=== PATIENT | male | born 1970 | race Caucasian/White ===

== ENCOUNTER → 2017-05-30 | Day surgery (SDC) | payer OTHER, MEDICARE ==
[~2017-05-30] MED LIST: ALPRAZOLAM PO; ARMOUR THYROID30 MG PO; BENICAR HCT 20-1 TA1 PO; COZAAR PO; DEPO-TESTOT200 MG/ML IM; IBUPROFEN PO; IBUPROFEN800 MG PO; LEVOTHYROXINE100 MCG PO; LORTAB 10-5001 EACH PO; LORTAB 10/500 T1 TAB PO; LUNESTA; MULTI VITAMIN1 EACH PO; MULTI-VITAMIN1 EAC1 PO; OXYCODONE HCL15 MG PO; OXYCODONE HCL30 MG PO; OXYCONTIN PO; OXYCONTIN60 MG PO; OXYCONTIN80 MG PO; PAIN CREAM; ROXICODONE30 M1 PO; SERTRALINE HCL50 MG PO; SYNTHROID PO; TRAZODONE HCL100 MG PO; TRAZODONE PO; XANAX XR2 MG PO; ZOCOR PO; ZOLOFT PO
--- NOTE | ~2017-05-30 | OR ---
Unit #: [id number] #: [id number] Patient: JANICE CARRENO [id number] [address] [address] [id number] O MR#: [id number] NAME: JANICE CARRENO ROOM: Date of Procedure: 05/30/2017 Admission Date: 05/30/2017 Surgeon: Kavon Pacheco M.D. : 1970 Attending Physician: Kavon Pacheco M.D. Primary Care Physician: Naz Ballesteros M.D. OPERATIVE REPORT PREOPERATIVE DIAGNOSIS Chronic regional pain syndrome, lower extremity. POSTOPERATIVE DIAGNOSIS Chronic regional pain syndrome, lower extremity. PROCEDURE PERFORMED Lumbar sympathetic block with fluoroscopic guidance for needle localization. INDICATIONS FOR PROCEDURE The patient is a 47-year-old male with CRPS affecting his left lower extremity. It was recently flared up significantly due to dysfunction of the spinal cord stimulator, which is working very well to control the symptoms. Plan is to revise the stimulator wires. In the meantime, we are going to trial of sympathetic block to help settle the flat symptom complex down. DESCRIPTION OF PROCEDURE The patient was placed in a prone position. Standard monitors were applied. Sterile prep and drape of the thoracolumbar area was performed. The skin to the left of midline at the L1 level was localized with 1% lidocaine. A long 22-gauge Quincke point spinal needle was advanced with biplanar fluoroscopy to the lower edge of the L1 vertebral body. The needle was walked up to the anterolateral border of L1. After confirming proper positioning with loss of resistance and fluoroscopy and radiographic contrast, a dose of 10 mL of 0.25% bupivacaine were deposited. There was negative intermittent aspiration every 2 to 3 mL. Dictated by... Kavon Pacheco M.D. LHP/rickey TD: 05/30/2017 11:48 JOB #: [id number] Unit #: [id number] #: [id number] Patient: JANICE CARRENO OPERATIVE REPORT Page 1 of 1 X Kavon Pacheco MD X PROCEDURE OPERATIVE NOTE
== END | disposition home or self-care (01) ==
LOC: CCSC 06:51
DX: G89.4 Chronic pain syndrome (principal)
CPT/HCPCS: J2250

== ENCOUNTER → 2017-06-17 | Day surgery (SDC) | payer OTHER ==
--- NOTE | ~2017-06-17 | CR246 ---
[facility] A Service of [facility] RADIOLOGY TEXT RESULTS PATIENT: JANICE CARRENO LOCATION: [facility] : [birth year] UNIT #: [id number] AGE: [address]: Kavon Pacheco MD SEX: M ORDER DR: [id number] [facility] [address] [place], [place] [address] [id number] O MR#: [id number] Acc #: [id number] NAME: JANICE CARRENO : 1970 SEX: M STUDY DATE/TIME: 06/17/2017 13:55 UNIT: [facility] ROOM: STUDY DESCRIPTION: CR Thoracic Spine SIngle View Attending Physician: Kavon Pacheco M.D. Ordering Physician: Huseyin Pacheco Primary Care Physician: Naz Ballesteros M.D. MEDICAL IMAGING REPORT This report is preliminary unless electronic signature is present EXAM Thoracic spine single view HISTORY Spinal cord stimulator placement by Dr. Huseyin Pacheco, fluoro time 1 minute [address] Pacheco 1 fluoroscopic image obtained and submitted for review retrospectively. COMMENT Single fluoroscopic image from 446 06/17/[address] Adams is submitted for retrospective review. It includes lower thoracic spine with a stimulator leads projected over the lower thoracic spine. Please see Dr. Pacheco note. IMPRESSION Single fluoroscopic image of the lower thoracic spine obtained in the AP projection shows spinal stimulator leads projected over the expected location of the canal on the one-view. See Dr. Pacheco note. Dictated by... Daisy Mendez M.D. THIS IS AN ELECTRONICALLY VERIFIED REPORT Daisy Mendez M.D. at 06/18/2017 2:11 PM JERARDO/ashley TD: 06/18/2017 08:01 JOB #: [id number] MEDICAL IMAGING REPORT Page 1 of 1 COPY
--- NOTE | ~2017-06-17 | OR ---
Unit #: [id number] #: [id number] Patient: JANICE CARRENO [id number] [address] [place], [place] [address] [id number] O MR#: [id number] NAME: JANICE CARRENO ROOM: Date of Procedure: 06/17/2017 Admission Date: 06/17/2017 Surgeon: Kavon Pacheco M.D. : 1970 Attending Physician: Kavon Pacheco M.D. Primary Care Physician: Naz Ballesteros M.D. OPERATIVE REPORT PREOPERATIVE DIAGNOSES Chronic regional pain syndrome, lower extremity, post fusion/laminectomy syndrome with left lower extremity radiculopathy. POSTOPERATIVE DIAGNOSES Chronic regional pain syndrome, lower extremity, post fusion/laminectomy syndrome with left lower extremity radiculopathy, status post revision of the spinal cord stimulator IPG pocket, status post removal of percutaneous leads x2, status post placement of percutaneous lead x2. ANESTHESIA MAC. PREOPERATIVE ANTIBIOTICS Ancef 1 g. ESTIMATED BLOOD LOSS 10 mL. DESCRIPTION OF PROCEDURE The patient was placed himself in a prone position, comfortable on the operating room table. He was given sedation and monitored anesthetic care. The patient was sterilely prepped and draped after locating the site of the stimulator anchors and connectors. The skin overlying this was localized with 0.5% Marcaine and epinephrine. Sharp dissection was then used to dissect down to the connectors. These were freed up and the leads were checked with the [employer] rep for integrity. There were 2 quad electrodes, one of which have all leads functioning normal, one of which had a distal leads not functioning normally as we had seen in the office during testing. The [employer] accessory kit using the catheter was flipped over the leads after they had been freed up at their anchor sites and advanced just into the epidural space. The stylet was then passed into each of the leads and we advanced leads to different position hoping to find an area, where the preexisting electrodes would give the stimulation that was required to keep this patient's pain under control. The leads moved very freely within the epidural space. There was no evidence of adhesion. We spent almost 2 hours trying to get a combination of the leads with positions anywhere between T9 and T12 that would give the patient stimulation down below his knee and into his foot, which is where he had in the past, which is what he requires for his symptom control. Even with multiple repositioning, we were unable to get adequate Unit #: [id number] #: [id number] Patient: JANICE CARRENO stimulation into the foot. Some stimulation to the knee which had been present preoperatively and otherwise complaints of pressure and at times, stimulation in the back, buttock, and hips. Due to the fact this patient had failed all other attempts of conservative management of his symptoms, the decision was made to remove the quad electrodes and placed octad electrodes to see if we get better stimulation with this or to possibly use high-frequency stimulation if indeed we were unable to recapture reasonable control of his entire leg. A 14-gauge introducer needle was placed for one of the electrodes after the removal. The other octad electrode was able to be passed through the catheter system that had been used to reposition the initial quad electrodes. Using this and a steering guidewire, we were able to easily manipulate the quad leads within the epidural space. We spent almost a further hour to trying to get a combination of the stimulation, which would give the patient control of the symptoms. Final, we were able to achieve stimulation to the entire leg to the foot using a single electrode. The other electrode was left in place with the distal electrode over the lower third of the T9 vertebral body. It was roughly parallel to the lead that was somewhat left of midline. Plan being to trial high-frequency stimulation with this electrode. If we were unable to replicate the good stimulation, we had been able to get intraoperatively with the other electrodes. We then opened the IPG pocket and removed the battery, which was only 4 years old, detached the electrode connector and removed this through the incision. The new electrodes were securely fastened using bumpy anchor appliances using 2-0 silk and continued positioning of the electrodes was then checked again. These electrodes were then tunneled to the IPG pocket and attached to the stimulator battery. The patient unfortunately had not been compliant with continuing to keep his battery charged, so we are going to check impedances with very careful to make sure that both electrodes fit snugly and to the adapters and that the set screws were properly tightened. Both of the wounds were copiously irrigated with irrigant. A tension-relief loop was left in the paraspinous area and the skin and subcutaneous tissues were closed in multiple layers to maintain those tension-relief loops. The buttock wound was then closed in 2 layers with 2-0 Vicryl also. Both wounds were then closed with bipin and sterilely dressed. The patient was discharged to the recovery room in stable condition. The new leads were [employer] [id number] lot #[id number] #[id number]. The patient will recharge his stimulator IPG and he presented to the office for programming. Dictated by... Nai Rosario/rickey TD: 06/17/2017 19:35 JOB #: [id number] Unit #: [id number] #: [id number] Patient: JANICE CARRENO OPERATIVE REPORT Page 1 of 1 X Kavon Pacheco MD X PROCEDURE OPERATIVE NOTE
--- NOTE | ~2017-06-17 | EKG ---
PATIENT: JANICE CARRENO UNIT #: [id number] Ventricular Rate: 68 BPM Atrial Rate: 68 BPM P-R Interval: 160 ms QRS Duration: 108 ms Q-T Interval: 378 ms QTC Calculation(Bezet): 401 ms P Colcord: 25 degrees Calculated R Colcord: 63 degrees Calculated T Colcord: 44 degrees Diagnosis Line: Normal sinus rhythm with sinus arrhythmia Diagnosis Line: Normal ECG Diagnosis Line: When compared with ECG of 16-FEB-2013 11:50, Diagnosis Line: No significant change was found Diagnosis Line: Confirmed by RHIANNA HITCHCOCK MD ([id number]) on 06/17/2017 Diagnosis Line: 6:31:47 PM INTERPRETING MD: CORETTA BOJORQUEZ
[2017-06-17 12:13] LABS: CALCIUM SERUM 9.4 mg/dL (8.4-10.2); POTASSIUM 3.4 mmol/L (3.5-5.1)
== END | disposition home or self-care (01) ==
LOC: CSUR 10:29
PROVIDERS: Pain Medicine Pain Medicine
DX: G90.529 Complex regional pain syndrome I of unspecified lower limb (principal); M96.1 Postlaminectomy syndrome, not elsewhere classified; T85.112A Breakdown (mechanical) of implanted electronic neurostimulator of spinal cord electrode (lead), initial encounter; M54.10 Radiculopathy, site unspecified; E89.0 Postprocedural hypothyroidism; K21.9 Gastro-esophageal reflux disease without esophagitis; F17.210 Nicotine dependence, cigarettes, uncomplicated; Z87.01 Personal history of pneumonia (recurrent)
CPT/HCPCS: 72020; 76001; 80048; 93005; C1778; J0690; J2250; J3010